=== PATIENT | male | born 1970 | race Asian ===

== ENCOUNTER 2025-03-27 12:25 | Day surgery (SDC) | payer BC, SELFPAY ==
[2025-03-26 11:43] VITALS: BMI 25.9
[2025-03-27] VITALS (9 sets, daily range): BP systolic 131–155; BP diastolic 85–102; PULSE 60–80; RESP 10–20; TEMP 36.6–36.7; O2SAT 96–100; BMI 25.6
[2025-03-27] MEDS: RINGERS LACTATED 1000 ML 1,000 ML 100 ML IV (14:28)
[2025-03-27] MEDS: MIDAZOLAM INJ 1 MG/ML VIAL 2 ML (ASD USE ONLY) 2 MG IVP (14:31)
[2025-03-27] MEDS: fentaNYL CIT INJ 50 mCg/ML AMP 2ML (ASD USE ONLY) IVP (14:31)
--- NOTE | 2025-03-27 15:36 | SUR.PHASEII ---
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 PATIENT IN WHEELCHAIR WAITING FOR [facility]AMAL ARRIVAL. PATIENT DRINKING WATER WITH NO DIFFICULTY.
== END 2025-03-27 15:55 | disposition home or self-care (01) ==
PROVIDERS: PCP Family Medicine; Referring Provider Surgery; Visit Provider Surgery
PROC: 0DBE8ZX Excision of Large Intestine, Via Natural or Artificial Opening Endoscopic, Diagnostic (ICD-10-PCS; CPT 45380; principal; 2025-03-27 14:30)
DX: Z12.11 Encounter for screening for malignant neoplasm of colon (principal); F41.9 Anxiety disorder, unspecified; I10 Essential (primary) hypertension
CPT/HCPCS: 45378; J1200; J2250; J3010; J7120